=== PATIENT | female | born 1945 | race Caucasian/White ===

== ENCOUNTER → 2017-04-12 | Outpatient (CLI) | payer OTHER ==
[~2017-04-12] MED LIST: BALANCED SALT SOLN OPHT IRRIG 15 ML BTL RIGHT EYE ONE; CALC600T64 PO; CITA10TA4 PO; FLUO0.1S9 EACH EYE; NO ITAB PO; OMEG1CAP41 PO; OMEP20TA93 PO; PHENYLEPHRINE HCL 2.5% OPTH SOLN 2 ML BTL ONE; PROPARACAINE HCL 0.5% OPHT SOLN 15 ML BTL ONE; TOBR3.5O EACH EYE; TROPICAMIDE 1% OPHT SOLN 15 ML BTL ONE; ZOLP5TAB3 PO
== END ==
LOC: PHSDC 10:31
PROVIDERS: ATTEND Ophthalmology
DX: H26.491 Other secondary cataract, right eye (principal)